=== PATIENT | female | born 1950 | race Caucasian/White ===

== ENCOUNTER 2018-09-20 22:39 | Emergency (ER) | payer MEDICARE, BC ==
[~2018-09-20] VITALS: Ht 160 cm; Wt 100.0 kg
[2018-09-20] MEDS ORDERED: VESI5TAB2 (22:56)
[2018-09-20] MEDS ORDERED: JANU50TA4 (22:56)
[2018-09-20] MEDS ORDERED: TERB250T90 (22:56)
[2018-09-20] MEDS ORDERED: ESOM40CA35 (22:56)
[2018-09-20] MEDS ORDERED: IRBE300T10 (22:56)
[2018-09-20] MEDS ORDERED: ONDANSETRON 4MG/2ML VIAL (J2405) As Ordered ONE (23:37)
[2018-09-20] MEDS ORDERED: MORPHINE 4 MG/ML 1ML VIAL/SYRINGE (J2270) As Ordered ONE (23:37)
[2018-09-20] MEDS ORDERED: MORPHINE 4 MG/ML 1ML VIAL/SYRINGE (J2270) IV ONE (23:45)
[2018-09-20] MEDS ORDERED: ONDANSETRON 4MG/2ML VIAL (J2405) IV ONE (23:45)
[2018-09-20 23:57] LABS: INR 1.06; PROTHROMBIN TIME 13.5 SECONDS (11.8-14.0)
[2018-09-20 23:58] LABS: PARTIAL THROMBOPLASTIN TIME 30.5 SECONDS (25.0-38.4)
[2018-09-21 00:02] LABS: BLOOD UREA NITROGEN 16 MG/DL (7-18); CARBON DIOXIDE LEVEL 26 MEQ/L (21-32); CHLORIDE LEVEL 104 MEQ/L (98-107); CREATININE FOR GFR 0.92 MG/DL (0.55-1.30); GLOMERULAR FILTRATION RATE > 60.0 (>45); GLUCOSE, FASTING 165 MG/DL (70-100); POTASSIUM SERUM 4.1 MEQ/L (3.5-5.1); SODIUM LEVEL 139 MEQ/L (136-145)
[2018-09-21 00:14] LABS: BASO # 0.1 10^3/uL (0.0-0.2); BASO % 0.6 % (0.0-1.0); EOS # 0.4 10^3/uL (0.0-0.50); HEMATOCRIT 39.4 % (36.0-47.0); HEMOGLOBIN 12.3 g/dl (12.0-15.5); LYMPH # 2.6 10^3/uL (1.5-4.5); MEAN CORPUSCULAR HEMOGLOBIN 27.3 pg (27.0-33.0); MEAN CORPUSCULAR HGB CONC 31.2 g/dl (32.0-36.5); MEAN CORPUSCULAR VOLUME 87.4 fl (80.0-96.0); MONO % 7.6 % (0.0-5.0); NEUTROPHILS # 8.7 10^3/uL (1.8-7.7); NEUTROPHILS % 68.1 % (36.0-66.0); PLATELET COUNT, AUTOMATED 288 10^3/uL (150-450); RED BLOOD COUNT 4.51 10^6/uL (4.00-5.40); WHITE BLOOD COUNT 12.8 10^3/uL (4.0-10.0)
[2018-09-21] MEDS: HYDROMORPHONE HCL 0.5 MG/ 0.5 ML SYRINGE (J1170 PER 1) IV PRN ×4 (00:20→02:50)
[2018-09-21] MEDS ORDERED: LABETALOL HCL 100 MG/20 ML VIAL IV STA (01:11)
[2018-09-21 01:27] VITALS: BP 212/95
--- NOTE | 2018-09-21 02:33 | REPVR ---
EXAM: CT Left Upper Extremity Without Contrast, Shoulder EXAM DATE/TIME: 09/21/2018 12:31 AM CLINICAL HISTORY: 67 years old, female; Injury or trauma; Fall; Initial encounter; Fracture, traumatic injury; Closed fracture; Humerus; Left; Additional info: Shoulder fracture, dislocation, ortho request TECHNIQUE: Imaging protocol: CT of the Left upper extremity without contrast was performed. Exam focused on the shoulder. Coronal and sagittal reformatted images were created and reviewed. Radiation optimization: All CT scans at this facility use at least one of these dose optimization techniques: automated exposure control; mA and/or kV adjustment per patient size (includes targeted exams where dose is matched to clinical indication); or iterative reconstruction. COMPARISON: CR Shoulder, complete LEFT 09/20/2018 11:10 PM (The report from this study was not available for review at the time of this interpretation.) FINDINGS: Bones/joints: There is an acute, comminuted, displaced, impacted, angulated fracture of the left humeral head, surgical neck, and greater and lesser tuberosities, with greater than 1 cm of displacement and greater than 45 degrees angulation of the greater tuberosity fracture fragment and greater than 1 cm of proximal displacement of the humeral shaft component of the fracture (Neer 3-part humeral head/neck fracture). No significant displacement of the lesser tuberosity fracture is noted. There is a subcoracoid left anterior shoulder dislocation. The bony glenoid is intact. There is a left glenohumeral joint hemarthrosis. There is a lipohemarthrosis in the left subacromial subdeltoid bursa. 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 The acromion has a concave shape (type 2 acromion). The acromial orientation is mildly laterally downsloping with respect to the distal end of the clavicle. No os acromiale is present. No widening of the acromioclavicular joint space or coracoclavicular space is noted to suggest an acromioclavicular separation injury. Soft tissues: No calcific densities are noted in the rotator cuff or subacromial subdeltoid bursa to suggest calcific tendinitis or calcific subacromial subdeltoid bursitis. IMPRESSION: 1. Acute Neer 3-part left humeral head/neck fracture. 2. Subcoracoid left anterior shoulder dislocation. Electronically signed by: Jean Huang On 09/21/2018 02:33:07 AM
[2018-09-21] MEDS ORDERED: NS 1,000 ML IV ONE (02:45)
[2018-09-21 02:47] VITALS: BP 168/78
--- NOTE | 2018-09-21 07:55 | REP ---
Clinical: Trauma. Technique: Three views of the left humerus. Findings: There is a comminuted displaced and mildly angulated fracture involving the humeral head/neck with overlying soft tissue swelling. Impression: Comminuted fracture dislocation of the humeral head/neck. Electronically Signed by Rohan Don MD 09/21/2018 07:46 A
--- NOTE | 2018-09-21 07:59 | REP ---
Clinical: Fall. Elbow pain. Technique: Two limited views of the left elbow. Findings: Examination is limited due to positioning secondary to pain and trauma. No obvious acute elbow injury identified. Impression: Limited examination. No obvious acute elbow injury identified. Electronically Signed by Rohan Don MD 09/21/2018 07:51 A
== END 2018-09-21 02:51 | disposition short-term general hospital (02) ==
LOC: M ED 22:39
DX: S42.492A Other displaced fracture of lower end of left humerus, initial encounter for closed fracture (principal); S43.005A Unspecified dislocation of left shoulder joint, initial encounter; W01.0XXA Fall on same level from slipping, tripping and stumbling without subsequent striking against object, initial encounter; Y92.830 Public park as the place of occurrence of the external cause; I10 Essential (primary) hypertension; E11.9 Type 2 diabetes mellitus without complications; Z79.899 Other long term (current) drug therapy; Z88.8 Allergy status to other drugs, medicaments and biological substances
CPT/HCPCS: 73030; 73070; 73200; 80048; 85025; 85610; 85730; 96374; 96375; 96376; 99285; J1170; J2270; J2405